=== PATIENT | male | born 1975 | race Caucasian/White ===

== ENCOUNTER 2023-09-20 16:48 | Emergency (ER) | payer OTHER, SELFPAY ==
[2023-09-20 16:56] VITALS: BP 143/89; PULSE 94; RESP 18; TEMP 36.3; O2SAT 96
--- NOTE | 2023-09-20 17:07 | ED.DENTAL ---
HPI - Dental/Oral General Chief complaint: Dental/Oral Stated complaint: tooth pain Time Seen by Provider: 09/20/23 17:07 Source: patient, RN notes reviewed and old records reviewed Mode of arrival: ambulatory Limitations: no limitations History of Present Illness HPI Narrative: 48 year old male presents to express care with complaints of dental pain with red raised area, where #4 tooth was and is missing. Patient has numerous dental caries,missing teeth, with some swelling to his facial area on the right side of his face with some firmness to right cheek. Patient reports that he has bad teeth but has not been able to get a dentist due to being on medical card and also problems with transportation. Patient reports that his pain is 10/10 and is throbbing. He reports that he has used ice to face as comfort measure but has not routinely taken any OTC medications MD Complaint: tooth pain Location: Tooth # (where #4 tooth was) Onset (ago): week(s) (2-3 weeks with increased pain ) Duration: constant Severity scale (1-10): 10 Exacerbating factors: cold Context: history of dental caries and poor dental care Associated symptoms: gum swelling and other (dental pain and fever) Related Data Home Medications Medication Instructions Recorded Confirmed atorvastatin 20 mg tablet 20 mg PO DAILY 09/20/23 09/20/23 fluoxetine 40 mg capsule 40 mg PO DAILY 09/20/23 09/20/23 insulin glargine 100 unit/mL (3 subcut 09/20/23 mL) subcutaneous pen (Lantus Solostar U-100 Insulin) insulin lispro 100 unit/mL 10 unit subcut TID 09/20/23 09/20/23 subcutaneous pen sitagliptin phosphate 100 mg 100 mg PO DAILY 09/20/23 09/20/23 tablet (Januvia) trazodone 50 mg tablet 50 mg PO QHS 09/20/23 09/20/23 Allergies Allergy/AdvReac Type Severity Reaction Status Date / Time No Known Allergies Allergy Verified 09/20/23 17:12 Review of Systems Review of Systems: CONSTITUTIONAL: Denies fever, chills, or sweats. ENT: Denies rhinorrhea, congestion, sore throat, or otalgia. Reports dental pain gum redness and swelling, facial pain and swelling right cheek with some firmness noted to cheek.no trismus CARDIOVASCULAR: Denies chest pain, palpitations, or edema. RESPIRATORY: Denies cough or dyspnea. SKIN: Denies rash or itching. MUSCULOSKELETAL: Denies myalgia. NEUROLOGIC: Denies headache All systems reviewed & are unremarkable except as noted in HPI and below PMFSH Past Medical History Medical History (Updated 09/21/23 @ 22:18 by Jazmín Josue NP) Anxiety Diabetes Elevated cholesterol History of dental problems Hypertension Surgical History Surgical History (Updated 09/21/23 @ 22:16 by Jazmín Josue NP) History of carpal tunnel surgery Social History Social History (Updated 09/20/23 @ 17:32 by Jazmín Josue NP) Smoking status: Current every day smoker Tobacco type: cigarettes Living arrangements: with family Gender identity (if verbalized by the patient): Male Comments At time of signature, agree with nursing past medical, surgical, social and family history. There is no relevant family history pertinent to the presenting complaint Exam Narrative: GENERAL: Well-appearing, well-nourished, and in no acute distress. HEAD: Normocephalic, atraumatic. EYES: PERRLA and EOMI. ENT: Nares clear, no rhinorrhea or epistaxis. Mucous membranes moist. Missing teeth, broken teeth, caries pain and redness and swelling to gum ehere #4 tooth is missing, no trismus or Trevor Angina noted. Patient does ahave swelling to his right side of face with firm area noted to area of swelling, no redness noted . NECK: Supple.no lymphadenopathy SAO2 96% on room air CHEST: Clear to auscultation. No respiratory distress. HEART: Regular rate and rhythm. No murmur heard. Normal peripheral pulses. SKIN: Warm, dry, no rash. NEURO: No focal deficits. Alert and oriented x3. Course Course Emergency Course: Patient is aware of diagnosis, und
[2023-09-20] MEDS: IBUPROFEN 600 MG TABLET PO (17:15)
== END 2023-09-20 17:45 | disposition home or self-care (01) ==
PROVIDERS: Emergency Provider Registered Nurse; PCP Family Medicine
DX: K04.7 Periapical abscess without sinus (principal); K02.9 Dental caries, unspecified; E11.9 Type 2 diabetes mellitus without complications; E78.00 Pure hypercholesterolemia, unspecified; I10 Essential (primary) hypertension; F17.210 Nicotine dependence, cigarettes, uncomplicated; F41.9 Anxiety disorder, unspecified; Z79.4 Long term (current) use of insulin
CPT/HCPCS: 99213; A9270; G0463